=== PATIENT | female | born 1970 | race Caucasian/White ===

== ENCOUNTER 2017-06-08 13:31 | Emergency (ER) | payer MEDICARE, MEDICAID ==
[2017-06-08 14:47] LABS: ABSOLUTE LYMPHOCYTES (AUTO) 0.3 10^3/uL (0.5-4.7); ABSOLUTE MONOCYTES (AUTO) 0.5 10^3/uL (0.1-1.4); ABSOLUTE NEUT (AUTO) 4.6 10^3/uL (1.7-8.2); BASOPHILS % (AUTO) 0.5 % (0-2); EOSINOPHILS % (AUTO) 0.5 % (0-6); HEMATOCRIT 36.9 % (36.0-47.0); HEMOGLOBIN 12.6 g/dL (12.0-15.5); HGB HCT DIFFERENCE 0.9; MEAN CORPUSCULAR HEMOGLOBIN 28.6 pg (27.0-33.4); MEAN CORPUSCULAR HGB CONC 34.2 g/dL (32.0-36.0); MEAN CORPUSCULAR VOLUME 84 fl (80-97); MONOCYTES % (AUTO) 9.8 % (3-13); RED BLOOD COUNT 4.41 10^6/uL (3.72-5.28); SEGMENTED NEUTROPHILS % (AUTO) 83.2 % (42-78); WHITE BLOOD COUNT 5.5 10^3/uL (4.0-10.5)
[2017-06-08] MEDS ORDERED: IPRATROPIUM/ALBUTEROL 0.5-2.5 MG/3 ML AMPUL NEB ONE ×2 (14:47→16:35)
--- NOTE | 2017-06-08 14:52 | ER Document Report ---
ED General - General Chief Complaint: Cough Stated Complaint: fever Time Seen by Provider: 06/08/17 14:27 Mode of Arrival: Ambulatory Information source: Patient - HPI Patient complains to provider of: Sick for 3 weeks Onset/Duration: Gradual, Worse Quality of pain: No pain Associated symptoms: Chills, Nonproductive cough, Fever, Headache, Hurts to breath, Sinus pain/drainage, Shortness of breath Exacerbated by: Movement, Coughing, Deep breathing Relieved by: Denies Notes: 46-year-old female presents from urgent care for workup of fever with cough. Patient states that for the past 3 weeks she has had a cough. She states that her fever began last night and so she went to the urgent care today. States that her cough is very dry and nonproductive. Patient denies any medical history with the exception of rheumatoid arthritis. Patient is on Humira her last dose was approximately 1 month ago. She was supposed to get a Humira injection 2 weeks ago however she did not give it to herself because she was ill. Patient has not received the flu shot. Patient did have pneumonia approximately 1 year ago and was seen in [place]. She states that a few years back she cannot recall exactly when, she did have respiratory arrest associated with a pneumonia. - Related Data Allergies/Adverse Reactions: Iodinated Contrast- Oral and IV Dye Allergy (Unknown, Verified 06/15/11 08:43) iodine [Iodine] Allergy (Unknown, Verified 06/15/11 08:43) Penicillins Allergy (Unknown, Verified 06/15/11 08:43) Past Medical History - General Information source: Patient - Social History Smoking Status: Never Smoker Frequency of alcohol use: None Drug Abuse: None Lives with: Family Family History: None Patient has suicidal ideation: No Patient has homicidal ideation: No - Past Medical History Cardiac Medical History: Reports: Hx Hypertension Pulmonary Medical History: Reports: Hx Asthma, Hx Bronchitis, Hx Pneumonia, Other - States she was diagnosed with asthma during 1 of her pneumonia events. Denies: Hx Tuberculosis Other: Patient states that when her pneumonia cleared she did not have any asthmatic symptoms. Neurological Medical History: Reports: None Endocrine Medical History: Reports: None Renal/ Medical History: Reports: None. Denies: Hx Peritoneal Dialysis Malignancy Medical History: Reports: None GI Medical History: Reports: None, Hx Gastroesophageal Reflux Disease Musculoskeltal Medical History: Reports Other - Rheumatoid arthritis for which she takes Humira Skin Medical History: Reports None Psychiatric Medical History: Reports: Hx Depression Traumatic Medical History: Reports: None, Other Infectious Medical History: Reports: Other - Pneumonia, unknown etiology Past Surgical History: Reports: Hx Section, Hx Hysterectomy, Hx Orthopedic Surgery - lt. elbow, Other - Had a left elbow replacement secondary to rheumatoid arthritis. Denies: Hx Pacemaker - Immunizations Hx Diphtheria, Pertussis, Tetanus Vaccination: Yes History of Influenza Vaccine for 03/2017 - 08/2017 Season: No Hx Pneumococcal Vaccination: 06/21/00 Review of Systems - Review of Systems Constitutional: Chills, Fever, Malaise EENT: Nose congestion, Sinus pressure Cardiovascular: No symptoms reported Respiratory: Cough, Hurts to breathe, Short of breath, Wheezing Gastrointestinal: No symptoms reported Genitourinary: No symptoms reported Female Genitourinary: No symptoms reported Musculoskeletal: No symptoms reported Skin: No symptoms reported Hematologic/Lymphatic: No symptoms reported Neurological/Psychological: No symptoms reported Physical Exam - Vital signs Vitals: Temp Pulse Resp BP Pulse Ox 99.8 F 98 22 H 141/91 H 98 06/08/17 13:31 06/08/17 13:31 06/08/17 13:31 06/08/17 13:31 06/08/17 13:31 - Notes Notes: PHYSICAL EXAMINATION: GENERAL: Patient appears ill. She is sitting in the stretcher with mild respiratory distress. HEAD: Atraumatic, normocephalic. EYES: Pupils equal round and reactive to light, extraocular movements intact, conjunctiva are normal. ENT: Nares patent, oropharynx clear without exudates. Moist mucous membranes. Tenderness with percussion over maxillary sinuses bilaterally NECK: Normal range of motion, supple without lymphadenopathy LUNGS: Currently poor air exchange bilaterally. Scant wheezing. HEART: Regular rate and rhythm without murmurs ABDOMEN: Soft, nontender, nondistended abdomen. No guarding, no rebound. No masses appreciated. Female : deferred Musculoskeletal: Normal range of motion, no pitting or edema. No cyanosis. NEUROLOGICAL: Cranial nerves grossly intact. Normal speech, normal gait. Normal sensory, motor exams PSYCH: Normal mood, normal affect. SKIN: Warm, Dry, normal turgor, no rashes or lesions noted. Course - Re-evaluation Re-evalutation: 06/08/17 15:48 His pulse ox dropped to 88%. She was placed on 2 L O2 and came up to 99. Did have one DuoNeb treatment. She does have wheezing bilaterally with better air exchange. 06/08/17 17:46 I did go and see the patient. She states that she is aching all over. I did talk to the nurse she is getting ready to give the Solu-Medrol and Rocephin that I ordered. She did have a temperature of 100.8. I will order Tylenol as well. 06/08/17 19:46 Going to reassess the patient. Her pulse ox is 97 and 98 on room air. She states she has been sleeping for little while she got no sleep last night. She does states she feels some improvement with her breathing. Antibiotic is still infusing. When this is done we will walk her with pulse ox. If she does not become hypoxic or tachypneic we will discharge home. Patient is where a plan she is agreeable. 06/08/17 20:55 Patient ambulates her pulse ox is 9790% she is not appear or feel short of breath. - Vital Signs Vital signs: Temp Pulse Resp BP Pulse Ox 99.8 F 98 12 135/96 H 95 06/08/17 13:31 06/08/17 13:31 06/08/17 18:01 06/08/17 18:01 06/08/17 18:01 - Laboratory Result Diagrams: 06/08/17 13:55 06/08/17 13:55 Laboratory results interpreted by me: 06/08/17 13:55 Seg Neutrophils % 83.2 H Lymphocytes % 6.0 L Absolute Lymphocytes 0.3 L - Diagnostic Test Radiology reviewed: Image reviewed, Reports reviewed Radiology results interpreted by me: 06/08/17 15:50 no acute findings CXR - EKG Interpretation by [facility] EKG shows normal: Sinus rhythm Rate: Normal When compared to previous EKG there are: Previous EKG unavailable Discharge - Discharge Clinical Impression: Bronchitis, Wheezing Condition: Stable Disposition: HOME, SELF-CARE Additional Instructions: Call the primary medical doctor ([facility] urgent care at [place]) tomorrow or the next day for follow-up. Take all medications as prescribed. Return to the emergency department if you fever, shortness of breath, inability to keep down her medications or have worsening symptoms or any other concerns. Prescriptions: Albuterol Sulfate [Proair HFA Inhalation Aerosol 8.5 gm MDI] 2 puff IH Q4H PRN # 1 mdi PRN Reason: Levofloxacin [Levaquin 750 mg Tablet] 750 mg PO DAILY #5 tablet Prednisone [Deltasone 20 mg Tablet] 3 tab PO DAILY 5 Days #15 tablet
[2017-06-08 14:53] LABS: ALANINE AMINOTRANSFERASE 30 U/L (9-52); ALBUMIN 3.6 g/dL (3.5-5.0); ALKALINE PHOSPHATASE 59 U/L (38-126); ANION GAP 9 (5-19); ASPARTATE AMINO TRANSFERASE 23 U/L (14-36); BILIRUBIN,DIRECT 0.2 mg/dL (0.0-0.4); BILIRUBIN,TOTAL 0.4 mg/dL (0.2-1.3); BLOOD UREA NITROGEN 13 mg/dL (7-20); CALCIUM 8.9 mg/dL (8.4-10.2); CARBON DIOXIDE 23 mmol/L (22-30); CHLORIDE 105 mmol/L (98-107); GLUCOSE 92 mg/dL (75-110); POTASSIUM 3.8 mmol/L (3.6-5.0); SODIUM 137.3 mmol/L (137-145); TOTAL PROTEIN 6.3 g/dL (6.3-8.2)
--- NOTE | 2017-06-08 15:06 | RADIOLOGY REPORT (SQ) ---
EXAM DESCRIPTION: CHEST PA/LAT COMPLETED DATE/TIME: 06/08/2017 2:55 pm REASON FOR STUDY: cough/fever COMPARISON: Chest films 10/29/2011, 12/13/2011, 03/05/2012, 03/24/2012 EXAM PARAMETERS: NUMBER OF VIEWS: two views TECHNIQUE: Digital Frontal and Lateral radiographic views of the chest acquired. RADIATION DOSE: NA LIMITATIONS: none FINDINGS: LUNGS AND PLEURA: No opacities, masses or pneumothorax. No pleural effusion. MEDIASTINUM AND HILAR STRUCTURES: No masses or contour abnormalities. HEART AND VASCULAR STRUCTURES: Heart normal size. No evidence for failure. BONES: No acute findings. HARDWARE: None in the chest. OTHER: No other significant finding. IMPRESSION: NO SIGNIFICANT RADIOGRAPHIC FINDING IN THE CHEST. TECHNICAL DOCUMENTATION: JOB ID: [id number] [employer]- All Rights Reserved
[2017-06-08 16:05] LABS: VENOUS BLOOD HCO3 29.6 mmol/L (20-32); VENOUS BLOOD PCO2 53.6 mmHg (35-63); VENOUS BLOOD PH 7.36 (7.30-7.42)
[2017-06-08] MEDS ORDERED: RINGERS SOLUTION,LACTATED 1,000 ML IV ONE (16:33)
[2017-06-08] MEDS ORDERED: METHYLPREDNISOLONE INJ 125 MG/2 ML SDV IV ONE (16:36)
[2017-06-08] MEDS ORDERED: LEVOFLOXACIN 750 MG/D5W RTU 750 MG/150 ML RTUPB IV SCH ×2 (17:00→18:00)
[2017-06-08] MEDS ORDERED: ACETAMINOPHEN 325 MG TABLET PO ONE (17:47)
[2017-06-08 21:10] VITALS: BP 137/88
--- NOTE | 2017-06-09 08:07 | EKG REPORT ---
SEVERITY:- OTHERWISE NORMAL ECG - SINUS RHYTHM BORDERLINE LEFT AXIS DEVIATION : Confirmed by: Regis Mathur MD 09-Jun-2017 08:06:10
== END 2017-06-08 21:17 | disposition home or self-care (01) ==
LOC: ER 13:31
DX: J40 Bronchitis, not specified as acute or chronic (principal); R06.2 Wheezing; R50.9 Fever, unspecified; R51 Headache; R06.02 Shortness of breath; Z88.0 Allergy status to penicillin; Z90.710 Acquired absence of both cervix and uterus; Z96.621 Presence of right artificial elbow joint
CPT/HCPCS: 94640 ×2; 99284; 96361; 96375; 96365; 96366; 36415; 87040; 85025; 80053; 84484; 82803; 83605; 87804; 71020; A9270 ×2; J2930; J7120; J1956; J7620